=== PATIENT | male | born 1950 | race Caucasian/White ===

== ENCOUNTER 2019-06-03 09:39 | Outpatient (CLI) | payer OTHER ==
--- NOTE | 2019-06-04 00:32 | Ultrasound Report ---
Reason: TOBACCO USE, SCREENING FOR AAA Procedure Date: 06/03/2019 Accession Number: [id number] / [id number] Procedure: US - Aorta Screening CPT Code: Final Report FULL RESULT: EXAM: AORTIC DOPPLER ULTRASOUND EXAM DATE: 06/03/2019 10:18 AM. CLINICAL HISTORY: Tobacco use, screening for AAA. Smoking tobacco, 75 pack year history. COMPARISON: None. TECHNIQUE: Real-time sonographic imaging of retroperitoneal vascular structures, including color-flow, Doppler flow and spectral analysis was performed by the paper wrapping machine operator. Multiple solar sales representative and assessor static images were saved for review. FINDINGS: Aorta: The abdominal aorta was adequately visualized. No evidence for abdominal aortic aneurysm. Aorta: Proximal: Sagittal AP 2.9 cm. Mid: Transverse 2.4 x 2.5 cm. Distal: Transverse 1.9 x 2.0 cm. Caliber: WNL: Yes. Plaque visualized: Yes. Iliacs: Right Iliac: Transverse 1.0 x 1.2 cm. Left Iliac: Transverse 0.9 x 1.2 cm. Iliac Vessels: The visualized proximal common iliac arteries are normal in caliber. Other: Atherosclerotic plaque seen within the mid to distal aorta as well as bilateral proximal iliacs. IMPRESSION: No evidence of aneurysm. Mild to moderate atherosclerotic plaque. [facility]
== END 2019-06-03 09:40 | disposition home or self-care (01) ==
LOC: DI 09:39
PROVIDERS: ATTEND Nurse Practitioner
DX: Z13.6 Encounter for screening for cardiovascular disorders (principal); I70.0 Atherosclerosis of aorta; Z87.891 Personal history of nicotine dependence
CPT/HCPCS: 76706

== ENCOUNTER 2019-08-02 12:12 | Emergency (ER) | payer OTHER ==
[2019-08-02 12:25] VITALS: BP 156/56
--- NOTE | 2019-08-02 13:26 | ED Physician Documentation ---
History of Present Illness - Stated complaint Stated Complaint: RIB PX - Chief complaint Chief Complaint: General - History obtained from History obtained from: Patient - Additonal information Additional information: Patient comes emergency department complaining of left rib pain after "Jamming my floating rib into the rib above it". Patient states that he sustained the injury while bending and twisting at the same time, but that the pain has slowly become worse and worse over the last several weeks. Patient states it hurts to take a deep breath, but that mainly, he has noticed soft tissue swelling around the area and feels as though the area is filling up with fluid. Patient denies any nausea or vomiting. No blood in his stool. No cough, fevers, or chills. No other complaints at this time. Review of Systems Ten Systems: 10 systems reviewed and negative Constitutional: reports: Reviewed and negative Eyes: reports: Reviewed and negative Ears: reports: Reviewed and negative Nose: reports: Reviewed and negative Throat: reports: Reviewed and negative Cardiac: reports: Chest pain / pressure (Rib pain) Respiratory: reports: Reviewed and negative GI: reports: Reviewed and negative : reports: Reviewed and negative Skin: reports: Reviewed and negative Musculoskeletal: reports: Reviewed and negative Neurologic: reports: Reviewed and negative Psychiatric: reports: Reviewed and negative Endocrine: reports: Reviewed and negative Immunocompromised: reports: Reviewed and negative PD PAST MEDICAL HISTORY - Past Medical History Past Medical History: No - Present Medications Home Medications: Ambulatory Orders Medication Instructions Recorded Confirmed Naproxen [Naprosyn] 250 mg PO Q8H PRN #20 tablet 08/02/19 - Allergies Allergies/Adverse Reactions: Allergies Allergy/AdvReac Type Severity Reaction Status Date / Time No Known Drug Allergies Allergy Verified 08/02/19 12:25 - Social History Does the pt smoke?: No Smoking Status: Never smoker PD ED PE NORMAL - Vitals Vital signs reviewed: Yes - General General: Alert and oriented X 3, No acute distress - HEENT HEENT: Atraumatic, EOMI, Moist mucous membranes - Neck Neck: Supple, no meningeal sign - Cardiac Cardiac: RRR, No murmur - Respiratory Respiratory: No respiratory distress, Clear bilaterally - Abdomen Abdomen: Soft, Non tender, Non distended - Derm Derm: Normal color, Warm and dry, No rash - Extremities Extremities: No deformity - Neuro Neuro: Alert and oriented X 3 - Psych Psych: Normal mood, Normal affect Results - Vitals Vitals: Vital Signs - 24 hr 08/02/19 12:21 Temperature 36.4 C L Heart Rate 80 Respiratory 16 Rate Blood Pressure 156/56 H O2 Saturation 96 Oxygen O2 Source Room air - Rads (name of study) Left ribs x-ray series Radiology: Final report received, EMP read indepedently, See rad report (No acute pathology) PD MEDICAL DECISION MAKING - ED course ED course: Patient was worked up with an x-ray series of the left ribs, which was found to be unremarkable. The patient had not had any significant abdominal symptoms and his abdominal exam was benign. His lungs were clear on exam and his x-ray did not show any abnormality of the lungs. The patient's soft tissue swelling was soft and in consideration of all the above, I did not feel further work-up is indicated at this time. The patient is advised to use ice and [id number] analgesia in the form of ibuprofen and Tylenol to help with the discomfort. He will follow-up with his primary care physician next week if the symptoms do not seem to be improved. Departure - Departure Disposition: 01 Home, Self Care Clinical Impression: Strain of chest wall Condition: Stable Instructions: ED Chest Pain Costochondritis Prescriptions: Naproxen [Naprosyn] 250 mg PO Q8H PRN #20 tablet PRN Reason: Pain Comments: Your chest x-ray and ribs look good. There is no evidence of a broken rib or any problem within your lung itself. You do have swelling of the soft tissue around the end of the rib, which indicates that most likely, you have strained the area and it has become inflamed. This will eventually settle down on its own, though sometimes scar tissue can develop which causes some ongoing pain. You should apply ice packs to the area and take the anti-inflammatory medicine prescribed. If you begin to have pain spreading further into your abdomen, then you will need to talk to your doctor about further imaging of the abdomen itself. Please call and schedule a follow-up appointment for this. Discharge Date/Time: 08/02/19 13:44
--- NOTE | 2019-08-02 13:27 | XRAY Report ---
Reason: pain/soa/ non traumatic Procedure Date: 08/02/2019 Accession Number: [id number] / [id number] Procedure: XR - Ribs w/PA Chest LT CPT Code: Final Report FULL RESULT: EXAM: LEFT RIB RADIOGRAPHY EXAM DATE: 08/02/2019 12:29 PM. CLINICAL HISTORY: Pain/soa/ non traumatic. COMPARISON: None. TECHNIQUE: 1 view of the chest and 2 views of the ribs. FINDINGS: Bones: Old appearing nondisplaced anterior third and fourth rib fractures are seen. Internal fixation changes of the right clavicle is also noted with plate and fixation screws in place. No acute fracture or bone lesion is identified. Lungs: No focal opacities. No pneumothorax. No pleural effusions. Mediastinum: Heart and mediastinal contours are unremarkable. Other: None. IMPRESSION: 1. No acute osseous abnormality demonstrated. 2. Old nondisplaced right clavicle and anterior third/fourth rib fracture is seen. [facility]
== END 2019-08-02 13:44 | disposition home or self-care (01) ==
LOC: ED 12:12
DX: S29.011A Strain of muscle and tendon of front wall of thorax, initial encounter (principal); X50.1XXA Overexertion from prolonged static or awkward postures, initial encounter
CPT/HCPCS: 99283; 99284

== ENCOUNTER 2023-07-14 09:10 | Outpatient (CLI) | payer OTHER | END 2023-07-14 09:11 | disposition home or self-care (01) | LOC: DI 09:10 | PROVIDERS: ATTEND Nurse Practitioner | DX: I35.1 Nonrheumatic aortic (valve) insufficiency (principal) | CPT/HCPCS: 93307 ==